=== PATIENT | male | born 1985 | race African-American/Black ===

== ENCOUNTER 2020-01-06 22:58 | Emergency (ER) | payer BC ==
[~2020-01-06] VITALS: Ht 167.6 cm; Wt 72.5 kg
[2020-01-06 23:10] VITALS: BP 107/66
--- NOTE | 2020-01-06 23:26 | PHYS DOC ---
Past History Past Medical History: No Pertinent History Past Surgical History left ankle surgical repair old sports injury Alcohol Use: Rarely Drug Use: None General Adult EDM: Chief Complaint: left ankle injury HPI: HPI: Patient is a 34 year old male who presents for evaluation of pain after injury to his left ankle. Patient been playing football and wearing a brace when somebody stepped on the inner aspect of his ankle. He felt a pop and then had difficulty bearing weight. There is no visible deformity but there is some mild to early moderate swelling present. Patient has history of prior old ankle injury with prior surgical repair. No other acute injuries reported Review of Systems: Review of Systems: Constitutional: Denies fever or chills Eyes: Denies change in visual acuity HENT: Denies nasal congestion or sore throat Respiratory: Denies cough or shortness of breath Cardiovascular: Denies chest pain or edema GI: Denies abdominal pain, nausea, vomiting, bloody stools or diarrhea : Denies dysuria Musculoskeletal: Denies back pain moderate left ankle joint pain Integument: Denies rash Neurologic: Denies headache, focal weakness or sensory changes Endocrine: Denies polyuria or polydipsia Lymphatic: Denies swollen glands Psychiatric: Denies depression or anxiety Heart Score: Risk Factors: Risk Factors: DM, Current or recent (<one month) smoker, HTN, HLP, family history of CAD, obesity. Risk Scores: Score 0 - 3: 2.5% MACE over next 6 weeks - Discharge Home Score 4 - 6: 20.3% MACE over next 6 weeks - Admit for Clinical Observation Score 7 - 10: 72.7% MACE over next 6 weeks - Early Invasive Strategies Physical Exam: PE: Constitutional: Well developed, well nourished, mild acute distress, non-toxic appearance. [] HENT: Normocephalic, atraumatic, bilateral external ears normal, oropharynx moist, no oral exudates, nose normal. [] Eyes: PERRL, EOMI, conjunctiva normal. [] Neck: Normal range of motion, no tenderness. [] Cardiovascular:Heart rate regular rhythm, no murmur [] Lungs & Thorax: Bilateral breath sounds clear to auscultation [] Abdomen: Bowel sounds normal, soft, no tenderness, no masses, no pulsatile masses. [] Skin: Warm, dry, no erythema, no rash. [] Back: No tenderness. [] Extremities: tendernes bilateral left ankle, no cyanosis, ROM intact, mild edema, no visible deformity. [] Neurologic: Alert and oriented X 3, normal motor function, normal sensory function, no focal deficits noted. [] Psychologic: Affect normal, judgement normal, mood normal. [] EKG: EKG: [] Radiology/Procedures: Radiology/Procedures: [address] [id number] IMAGING REPORT Signed PATIENT: JASPAL CARVAJAL ACCOUNT: [id number] : 1985 LOCATION: ER AGE: 34 SEX: M EXAM STATUS: REG ER ORD. PHYSICIAN: JUANITA DOYLE DO REASON: pain, football injury, hx prior surgery in 2011 PROCEDURE: ANKLE LEFT 3V INDICATION: Reason: pain, football injury, hx prior surgery in 2012 / Spl. Instructions: / History: COMPARISON: None. IMPRESSION: Left ankle: 3 views obtained. Plate and screws at the distal fibula. Small tibiotalar joint effusion is suspected. Tiny ossific density is seen adjacent to the medial malleolus which could be from a tiny fracture fragment of unknown age. Would correlate with symptoms in the area. There is also a vertically oriented lucency seen at the medial aspect talus adjacent to this site. Could be secondary to a prominent trabecula but would correlate with point tenderness to ensure that there is not a nondisplaced fracture Electronically signed by: Raymond Lomeli MD (01/06/2020 11:48 PM) [id number] DICTATED AND SIGNED BY: RAYMOND LOMELI MD DATE: 01/06/20 1337 CC: PCP,NO; JUANITA DOYLE DO ~ [] Course & Med Decision Making: Course & Med Decision Making Pertinent Labs and Imaging studies reviewed. (See chart for details) [] Dragon Disclaimer: Dragon Disclaimer: This electronic medical record was generated, in whole or in part, using a voice recognition dictation system. 0002 stable, small avulsion fracture noted on the medial side of the left ankle. This is near the deltoid ligament area. This injury was explained in detail to the patient. We do not have a cam walker boot. Therefore we applid a po sterior OCL to the left foot. Contact information for the on-call orthopedic surgeon given. Patient also given crutches so he can not bear weight to the affected ankle. Patient neurovascularly intact before and after the splint was placed Departure Departure: Impression: Primary Impression: Closed left ankle fracture Qualified Codes: S82.892A - Other fracture of left lower leg, initial encounter for closed fracture Disposition: HOME/RESIDENCE PRIOR TO ADM Condition: STABLE Referrals: PCP,JUAN (PCP) ARLENE CHIANG MD Patient Instructions: Ankle Fracture, Crutch Use, [id number] Additional Instructions: Rest ice and elevate the injured left ankle, wear the splint for the next 5 to 7 days until you see the orthopedic surgeon in the office. Use crutches as directed during that timeframe as well Scripts Naproxen (NAPROSYN) 500 Mg Tablet 1 TAB PO BID for pain for 10 Days, #20 TAB 0 Refills Prov: JUANITA DOYLE DO 01/07/20 Tramadol Hcl (TRAMADOL HCL) 50 Mg Tablet 50 MG PO PRN Q6HRS PRN for PAIN, #10 TAB Prov: JUANITA DOYLE DO 01/07/20 Justification of Admission: Justification of Admission: Justification of Admission Dx: N/A JUANITA DOYLE DO Jan 06, 2020 23:26
[2020-01-06] MEDS ORDERED: IBUPROFEN 600 MG TABLET. PO ONE (23:45)
[2020-01-06] MEDS ORDERED: traMADol 50 MG TABLET PO ONE (23:45)
--- NOTE | 2020-01-06 23:51 | RAD ---
INDICATION: Reason: pain, football injury, hx prior surgery in 2011 / . Instructions: / History: COMPARISON: None. IMPRESSION: Left ankle: 3 views obtained. Plate and screws at the distal fibula. Small tibiotalar joint effusion is suspected. Tiny ossific density is seen adjacent to the medial malleolus which could be from a tiny fracture fragment of unknown age. Would correlate with symptoms in the area. There is also a vertically oriented lucency seen at the medial aspect talus adjacent to this site. Could be secondary to a prominent trabecula but would correlate with point tenderness to ensure that there is not a nondisplaced fracture Electronically signed by: Teo Harmon MD (01/06/2020 11:48 PM) [id number]
[2020-01-07] MEDS ORDERED: TRAM50TA PO (00:07)
[2020-01-07] MEDS ORDERED: NAPR-683 PO (00:07)
== END 2020-01-07 00:18 | disposition home or self-care (01) ==
LOC: ER 22:58
DX: S82.892A Other fracture of left lower leg, initial encounter for closed fracture (principal); X50.9XXA Other and unspecified overexertion or strenuous movements or postures, initial encounter; Y93.61 Activity, american tackle football; Y92.89 Other specified places as the place of occurrence of the external cause; Y99.8 Other external cause status
CPT/HCPCS: 29515; 73610; 99283

== ENCOUNTER 2021-06-03 14:01 | Emergency (ER) | payer SELFPAY ==
[~2021-06-03] VITALS: Ht 170.2 cm; Wt 70.0 kg
[~2021-06-03 14:01] MED LIST: NAPR-683 PO; TRAM50TA PO
--- NOTE | 2021-06-03 15:13 | RAD ---
Site ID: [id number] EXAMINATION: XR CHEST 1V. HISTORY: 36 years Male Reason: uri symptoms / Spl. Instructions: / History: . . COMPARISON: None. Findings: The lungs are clear. The heart size is normal. There is no effusion or pneumothorax. The mediastinum and karan appear unremarkable. Impression: Unremarkable study. Electronically signed by: Rickie Traore MD (06/03/2021 3:11 PM) [id number]
[2021-06-03 15:29] VITALS: BP 132/77
[2021-06-03 16:10] LABS: INFLUENZA A PATIENT NEGATIVE (NEGATIVE); INFLUENZA B PATIENT NEGATIVE (NEGATIVE)
--- NOTE | 2021-06-03 16:25 | PHYS DOC ---
Past History Past Medical History: No Pertinent History Past Surgical History: No Surgical History Additional Past Surgical Histo: plate in left ankle Alcohol Use: Rarely Drug Use: None General Adult EDM: Chief Complaint: CONGESTION HPI: HPI: 36-year-old male presents with body aches, fatigue, chest wall pain. He has had the symptoms for couple of days but it was worse today. He took a home COVID test which was negative. He decided he should come in for a test in the hospital. Patient denies fever or chills. He is not vaccinated against COVID- 19. Review of Systems: Review of Systems: Constitutional: Denies fever or chills. Body aches, fatigue Eyes: Denies change in visual acuity HENT: Denies nasal congestion or sore throat Respiratory: Denies cough or shortness of breath Cardiovascular: Denies chest pain or edema GI: Denies abdominal pain, nausea, vomiting, bloody stools or diarrhea : Denies dysuria Musculoskeletal: Denies back pain or joint pain Integument: Denies rash Neurologic: Denies headache, focal weakness or sensory changes Endocrine: Denies polyuria or polydipsia Lymphatic: Denies swollen glands Psychiatric: Denies depression or anxiety Allergies: Allergies: Allergies Coded Allergies Type Severity Reaction Last Updated Verified No Known Allergies Allergy Unknown 01/06/20 Yes Physical Exam: PE: Constitutional: Well developed, well nourished, no acute distress, non-toxic appearance. [] HENT: Normocephalic, atraumatic, bilateral external ears normal, oropharynx moist, no oral exudates, nose normal. [] Eyes: PERRLA, EOMI, conjunctiva normal, no discharge. [] Neck: Normal range of motion, no tenderness, supple, no stridor. [] Cardiovascular: Heart rate regular rhythm, no murmur [] Lungs & Thorax: Bilateral breath sounds clear to auscultation [] Abdomen: Bowel sounds normal, soft, no tenderness, no masses, no pulsatile masses. [] Skin: Warm, dry, no erythema, no rash. [] Back: No tenderness, no CVA tenderness. [] Extremities: No tenderness, no cyanosis, no clubbing, ROM intact, no edema. [] Neurologic: Alert and oriented X 3, normal motor function, normal sensory function, no focal deficits noted. [] Psychologic: Affect normal, judgement normal, mood normal. [] Current Patient Data: Labs: Laboratory Tests Test 06/03/21 15:01 Influenza Type A (Rapid) Negative (NEGATIVE) Influenza Type B (Rapid) Negative (NEGATIVE) SARS-CoV-2 Antigen (Rapid) Negative (NEGATIVE) Vital Signs: Vital Signs Date Time Temp Pulse Resp B/P (MAP) Pulse Ox O2 Delivery O2 Flow Rate FiO2 06/03/21 15:29 98.5 96 16 132/77 (95) 98 Room Air EKG: EKG: [] Radiology/Procedures: Radiology/Procedures: [] Impressions: Site ID: [id number] EXAMINATION: XR CHEST 1V. HISTORY: 36 years Male Reason: uri symptoms / Spl. Instructions: / History: . . COMPARISON: None. Findings: The lungs are clear. The heart size is normal. There is no effusion or pneumothorax. The mediastinum and karan appear unremarkable. Impression: Unremarkable study. Electronically signed by: Esteban Traore MD (06/03/2021 3:11 PM) [id number] DICTATED AND SIGNED BY: ESTEBAN TRAORE MD DATE: 06/03/21 1510 CC: CINDY SANTILLAN DO; EMERGENCY,DEPARTMENT; PCP,NO ~MTH0 0 Heart Score: C/O Chest Pain: N/A Risk Factors: Risk Factors: DM, Current or recent (<one month) smoker, HTN, HLP, family history of CAD, obesity. Risk Scores: Score 0 - 3: 2.5% MACE over next 6 weeks - Discharge Home Score 4 - 6: 20.3% MACE over next 6 weeks - Admit for Clinical Observation Score 7 - 10: 72.7% MACE over next 6 weeks - Early Invasive Strategies Course & Med Decision Making: Course & Med Decision Making Pertinent Labs and Imaging studies reviewed. (See chart for details) The patient's chest x-ray is negative for acute findings. His rapid COVID and influenza are negative. I am still highly suspicious that this is COVID-19. Especially since patient has been not had COVID and he is unvaccinated. I recommended quarantine for 10 days from start of symptoms. He is stable for discharge at this time. [] Dragon Disclaimer: Dragon Disclaimer: This electronic medical record was generated, in whole or in part, using a voice recognition dictation system. Departure Departure: Impression: Primary Impression: Suspected COVID-19 virus infection Disposition: HOME / SELF CARE / HOMELESS Condition: STABLE Referrals: PCP,NO (PCP) Patient Instructions: Viral Syndrome Additional Instructions: You have been tested for or diagnosed with COVID-19. It is an infection caused by a new type of coronavirus. COVID-19 will cause cold-like or mild flu symptoms in most. It can cause more severe symptoms like problems breathing in some. There is no treatment for COVID-19. The body will clear the infection over time. Self-care will help to ease discomfort. Steps to Take: Self-Care Rest as needed. Healthy habits may help you feel better. Steps include: Choose healthy foods including fruits and vegetables. Drink water throughout the day. Get plenty of sleep each night. If you smoke, try to quit. It may ease breathing. Avoid alcohol. Keep Others Healthy The virus can spread to others. Droplets are released every time you sneeze or cough. The droplets can get into the mouth, nose, or eyes of people near you and lead to infection. To lower the chances of spreading COVID-19 to others: Stay at home until your doctor has said it is safe to leave. If you tested positive this will mean staying isolated until both of the following are true: At least 7 days have passed since the start of illness. You are free of fever for at least 72 hours without the use of medicine. During this time: - Avoid public areas, events, or transportation. Do not return to work or school until your doctor has said it is safe to do so. - Call ahead if you need to go to a medical center. Let them know you may have COVID-19. It will help them guide you where to go. They may also ask you to wear a facemask when you come to the office. - If you call for emergency medical services, let them know you may have COVID- 19. While at home: - Try to avoid close contact with others. Stay about 6 feet away. - If possible, spend most of your time in a separate room from others. - Use a face mask if you will be in close contact with others such as sharing a room or vehicle. - Have someone wipe down common surfaces in the home. Use household potato peeling machine operator every day on areas like doorknobs, counters, or sinks. - Cough or sneeze into a tissue. Throw the tissue away right after use. If a tissue is not available, cough or sneeze into your elbow. - Wash your hands often. Wash them after sneezing or coughing. Use soap and water and wash for at least 20 seconds. Alcohol based hand mold cleaner can be used if soap and water is not available. - Do not prepare food for others. Avoid sharing personal items like forks, spoons, or toothbrushes. - Avoid close contact with pets while you are sick. There is no evidence of the virus passing to pets. This is a safety step until more is known about this virus. Isolation can be frustrating. Social interaction can help. Keep in touch with friends and family through phone and tech options. You can still interact with others in y our home, just keep a safe distance of about 6 feet. Follow-up: Your doctors office will check in with you to see if there are any changes in your health. You may be asked to keep track of symptoms to share with them. They will also let you know when you are clear to be in public again. Problems to Look Out For: Contact your doctor if your recovery is not going as you expect. Get emergency care if you have problems such as: - Trouble breathing - Nonstop chest pain or pressure - Changes in awareness, confusion, or problems waking - Lips or face have bluish color - Worsening of symptoms If you think you have an emergency, call for emergency medical services right away. As taken from [facility] CINDY SANTILLAN DO Jun 03, 2021 16:25
== END 2021-06-03 16:50 | disposition home or self-care (01) ==
LOC: ER 14:01
DX: M79.10 Myalgia, unspecified site (principal); R53.83 Other fatigue; R07.89 Other chest pain; Z20.822 Contact with and (suspected) exposure to COVID-19
CPT/HCPCS: 71045; 87428; 99284

== ENCOUNTER 2021-07-13 13:04 | Emergency (ER) | payer OTHER ==
[~2021-07-13] VITALS: Ht 170.2 cm; Wt 72.0 kg
[2021-07-13 13:10] VITALS: BP 116/68
--- NOTE | 2021-07-13 13:26 | PHYS DOC ---
Past History Past Medical History: No Pertinent History Additional Past Medical Histor: seasonal allergies Past Surgical History: Other Additional Past Surgical Histo: plate in left ankle , I&D left elbow Alcohol Use: Rarely Drug Use: None General Adult EDM: Chief Complaint: KNEE INJURY HPI: HPI: Patient is a 36-year-old male coming in for medial left knee pain. Patient states he injured it 2 days ago playing football. Patient was tackled and fell onto his knee. Is unsure if it was a pop. Has been able to ambulate with pain. Patient states pain is worse with extension and palpation. Patient states he had a previous injury to that knee a few years ago but never had it evaluated. Review of Systems: Review of Systems: All other systems within normal limits except for as noted in the HPI Allergies: Allergies: Allergies Coded Allergies Type Severity Reaction Last Updated Verified No Known Allergies Allergy Unknown 01/06/20 Yes Physical Exam: PE: Constitutional: Well developed, well nourished, no acute distress, non-toxic appearance. [] HENT: Normocephalic, atraumatic, bilateral external ears normal, nose normal. [] Eyes: PERRLA, conjunctiva normal, no discharge. [] Neck: No rigidity, supple, no stridor. [] Cardiovascular: Regular rate and rhythm, brisk cap refill [] Lungs & Thorax: Non labored symmetric respirations, no tachypnea or respiratory distress [] Abdomen: Soft, nondistended. Skin: Warm, dry, no erythema, no rash. [] Back: Unremarkable Extremities: No deformities, range of motion grossly intact, no lower extremity edema. Tenderness over medial aspect of knee. No midline tenderness. Range of motion intact. No anterior, posterior, valgus or varus laxity. [] Neurologic: Alert and oriented X 3, no focal deficits noted. [] Psychologic: Affect normal, judgement normal, mood normal. [] Current Patient Data: Vital Signs: Vital Signs Date Time Temp Pulse Resp B/P (MAP) Pulse Ox O2 Delivery O2 Flow Rate FiO2 07/13/21 13:10 97.5 60 16 116/68 (84) 100 EKG: EKG: [] Radiology/Procedures: Radiology/Procedures: [address] [id number] IMAGING REPORT Signed PATIENT: JASPAL CARVAJAL ACCOUNT: [id number] : 1985 LOCATION: ER AGE: 36 SEX: M EXAM STATUS: REG ER ORD. PHYSICIAN: PADMINI MORALES MD REASON: fall, medial pain PROCEDURE: KNEE LEFT 3V EXAM: Left knee, 3 views. HISTORY: Fall. Pain. COMPARISON: None. FINDINGS: 3 views of left knee are obtained. There is no fracture, dislocation or subluxation. There is no joint effusion. IMPRESSION: No acute osseous finding. Electronically signed by: Kelly Carnes MD (07/13/2021 1:40 PM) [id number] DICTATED AND SIGNED BY: KELLY CARNES MD DATE: 07/13/21 1339 CC: PADMINI MORALES MD; PCP,NO ~MTH0 0 [] Heart Score: C/O Chest Pain: No Risk Factors: Risk Factors: DM, Current or recent (<one month) smoker, HTN, HLP, family history of CAD, obesity. Risk Scores: Score 0 - 3: 2.5% MACE over next 6 weeks - Discharge Home Score 4 - 6: 20.3% MACE over next 6 weeks - Admit for Clinical Observation Score 7 - 10: 72.7% MACE over next 6 weeks - Early Invasive Strategies Course & Med Decision Making: Course & Med Decision Making Pertinent Labs and Imaging studies reviewed. (See chart for details) [] Dragon Disclaimer: Dragon Disclaimer: This electronic medical record was generated, in whole or in part, using a voice recognition dictation system. Departure Departure: Impression: Primary Impression: Left medial knee pain Disposition: HOME / SELF CARE / HOMELESS Condition: STABLE Referrals: [facility] Patient Instructions: Knee Wraps (Elastic Bandage) and RICE Scripts Meloxicam (MELOXICAM) 15 Mg Tablet 1 TAB PO DAILY PRN for PAIN for 10 Days, #10 TAB 0 Refills Prov: PADMINI MORALES MD 07/13/21 PADMINI MORALES MD Jul 13, 2021 13:26
--- NOTE | 2021-07-13 13:42 | RAD ---
EXAM: Left knee, 3 views. HISTORY: Fall. Pain. COMPARISON: None. FINDINGS: 3 views of left knee are obtained. There is no fracture, dislocation or subluxation. There is no joint effusion. IMPRESSION: No acute osseous finding. Electronically signed by: Kelly Carnes MD (07/13/2021 1:40 PM) [id number]
[2021-07-13] MEDS ORDERED: MELO15TA23 PO (13:50)
== END 2021-07-13 14:11 | disposition home or self-care (01) ==
LOC: ER 13:13
DX: M25.562 Pain in left knee (principal)
CPT/HCPCS: 73562; 99283